=== PATIENT | female | born 1945 | race Caucasian/White ===

== ENCOUNTER → 2019-04-21 08:29 | Outpatient (CLI) | payer MEDICARE, SELFPAY ==
--- NOTE | 2019-04-21 08:30 | XR_ITS ---
XR clavicle LT CLINICAL INDICATION: Follow-up fracture ITS.REASON: Clavicle fracture ORDERING PHYSICIAN: Blake Ernandez MD PATIENT AGE: 73 years Comparison: 03/18/2019 FINDINGS: Previous CT scan demonstrated a fracture of the medial aspect of the clavicle. This area somewhat obscured by overlying ribs. There is a faint curvilinear area of decreased attenuation in this region consistent with a nondisplaced fracture overall not significant change from 03/18/2019. 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 IMPRESSION: No change nondisplaced fracture medial aspect of left clavicle
--- NOTE | 2019-04-21 09:40 | US_ITS ---
US thyroid HISTORY: Left-sided thyroid nodule, thyromegaly ITS.REASON: THYROMEGALY ORDERING PHYSICIAN: Blake Ernandez MD PATIENT AGE: 73 years Comparison: None FINDINGS: The right lobe is 4.3 x 1.8 x 1.6 cm. Nodule a: Slightly hypoechoic nodule upper pole at 7 mm. Nodule B: Hypoechoic nodule mid polar region posteriorly at 5 mm. Nodule C: Partially cystic 1.2 x 0.9 cm nodule with central decreased echogenicity and peripheral isoechoic area. The left lobe is 4.5 x 2 x 1.8 cm. 5 mm slightly hypoechoic nodule mid polar region with an adjacent 4 mm hypoechoic nodule. 1 x 0.9 cm hypoechoic nodule lower pole with an additional 6 mm hypoechoic nodule in the lower pole. The isthmus is slightly thickened at 5 mm containing a 2 mm hypoechoic nodule. IMPRESSION: Mildly enlarged thyroid gland with bilateral nodules probably benign. Recommend 6 month follow-up
== END ==
PROVIDERS: PCP Family Medicine; Visit Provider Family Medicine
DX: S42.009A Fracture of unspecified part of unspecified clavicle, initial encounter for closed fracture (principal); E01.0 Iodine-deficiency related diffuse (endemic) goiter
CPT/HCPCS: 73000; 76536

== ENCOUNTER → 2019-05-19 08:49 | Outpatient (CLI) | payer MEDICARE, SELFPAY ==
--- NOTE | 2019-05-19 08:53 | XR_ITS ---
PROCEDURE: XR CLAVICLE LT CLINICAL INDICATION: clavicle fracture COMPARISON: Shoulder L from 03/18/2019 FINDINGS: The clavicle is grossly intact.. There is minor cortical irregularity of the medial clavicle inferior border which could be a healed nondisplaced incomplete fracture. There is mild degenerate change of the AC joint with spurring superiorly. The humeral head and glenoid appear normal. There are no soft tissue calcifications. IMPRESSION: Mild degenerate change of the AC joint minor cortical irregularity of the inferior medial clavicle with normal variation versus healed incomplete fracture as possibilities. Dictated by: Dr. Mehrdad Heck MD 05/19/2019 09:[address] Mehrdad Heck MD in [place] 05/19/2019 09:20
== END ==
PROVIDERS: PCP Family Medicine; Visit Provider Orthopaedic Surgery
DX: S42.002A Fracture of unspecified part of left clavicle, initial encounter for closed fracture (principal)
CPT/HCPCS: 73000

== ENCOUNTER → 2019-08-09 14:04 | Outpatient (POV) | payer MEDICARE, SELFPAY | DX: Z00.00 Encounter for general adult medical examination without abnormal findings (principal) ==

== ENCOUNTER → 2019-11-02 16:03 | Outpatient (CLI) | payer MEDICARE, SELFPAY ==
--- NOTE | 2019-11-02 16:08 | MM_ITS ---
PROCEDURE: MM DIG SCREENING MAMM BI W/CAD CLINICAL INDICATION: SCREENING There is no personal or family history of breast cancer COMPARISON: None, this is baseline screening TECHNIQUE: Standard CC and MLO images and 3D Tomosynthesis was obtained. R2 CAD reviewed. FINDINGS: Diffuse scattered fibroglandular densities are seen throughout both breasts. There is an asymmetric nodular density outer quadrant right breast at approximately the 3 o'clock position measuring approximately 9 mm in diameter. Audie images confirm this to be a definite mass. Recommend the patient return for ultrasound examination to determine cystic or solid nature of this lesion. There are no suspicious microcalcifications. IMPRESSION: Fibrofatty parenchyma with asymmetric density right breast primarily with benign features but recommend patient return for ultrasound exam BI-RAD Category: 0 Need Additional Imaging Evaluation FOLLOW-UP: IMM Immediate Follow-up Recommended (A letter has been sent to the patient regarding results of the study.) Dictated by: Dr. Mehrdad Heck MD 11/11/2019 19:[address] Mehrdad Heck MD in [place] 11/11/2019 19:38
== END ==
PROVIDERS: PCP Family Medicine; Visit Provider Family Medicine
DX: Z12.31 Encounter for screening mammogram for malignant neoplasm of breast (principal)
CPT/HCPCS: 77063; 77067

== ENCOUNTER → 2019-11-15 13:44 | Outpatient (CLI) | payer MEDICARE, SELFPAY ==
--- NOTE | 2019-11-15 13:48 | US_ITS ---
PROCEDURE: US BREAST RT COMPLETE CLINICAL INDICATION: ABN MAMM COMPARISON: MM DIG SCREENING MAMM BI W/CAD from 11/02/2019 FINDINGS: There is a tiny hypoechoic lesion at the 3 o'clock position in the nipple measuring 0.5 by 0.5 x 0.3 cm. Shows well-defined borders and is too small to definitely characterize but appear to show internal echoes and likely is a fibroadenoma. There is hypoechoic oval lesion at the 10 o'clock position outer breast measuring 0.4 x 0.4 by 0.4 cm with slightly irregular borders and showing faint internal echoes and no acoustic enhancement. This likely is a small fibroadenoma and there is no definite mammogram correlation to this lesion. There is a 3rd oval hypoechoic lesion with well-defined borders 9 o'clock position mid breast measuring 0.7 x 0.3 by 0.6 cm and this is probably a small cyst with internal debris or possibly a small fibroadenoma. There does appear to be mammogram correlation with a small density at this location on the recent mammogram. There is a normal appearing node in the axilla. IMPRESSION: Small benign-appearing lesions in the breast as indicated with only the 10 o'clock lesion with slightly irregular borders not showing a definite mammogram correlation. Recommend the patient return for six-month follow-up right mammogram and ultrasound to evaluate for interval stability. Dictated by: Dr. Mehrdad Heck MD 11/30/2019 14:[address] Mehrdad Heck MD in [place] 11/30/2019 14:05
== END ==
PROVIDERS: PCP Family Medicine; Visit Provider Nurse Practitioner Family
DX: R92.8 Other abnormal and inconclusive findings on diagnostic imaging of breast (principal)
CPT/HCPCS: 76641

== ENCOUNTER → 2021-09-01 13:50 | Outpatient (CLI) | payer MEDICARE, SELFPAY | PROVIDERS: PCP Family Medicine; Visit Provider Family Medicine | DX: U07.1 COVID-19 (principal) | CPT/HCPCS: 87275; 87276; C9803; U0003; U0005 ==

== ENCOUNTER 2021-09-11 15:32 | Emergency (ER) | payer MEDICARE, SELFPAY ==
[2021-09-11 15:40] VITALS: BP 139/68; PULSE 81; RESP 20; TEMP 36.4; O2SAT 98; BMI 33.0
[2021-09-11 16:22] LABS: Basophils % 0.8 % (0.1-2.0); Chloride 100 mmol/L (98-107); Eosinophils # 0.1 K/mm3 (0.0-0.4); Eosinophils % 2.1 % (0.1-12.0); Hematocrit 30.3 % (37.0-47.0); Hemoglobin 9.7 g/dL (12.2-16.2); Lymphocytes # 0.8 K/mm3 (0.7-4.5); Lymphocytes % 16.1 % (10-50); Mean Corpuscular HGB Conc 31.9 g/dL (31.8-35.4); Mean Corpuscular Hemoglobin 27.3 pg (27.0-31.2); Mean Corpuscular Volume 85.7 fl (81-99); Mean Platelet Volume 8.6 fl (7.4-10.4); Monocytes # 0.3 K/mm3 (0.1-1.0); Monocytes % 5.5 % (1.7-9.3); Neutrophils # 3.9 K/mm3 (1.8-7.8); Neutrophils % 75.5 % (37.0-80.0); Platelet Count 281 K/mm3 (142-424); Red Blood Count 3.54 M/mm3 (4.20-5.40); Red Cell Distribution Width 14.9 % (11.5-17.5); White Blood Count 5.1 K/mm3 (4.8-10.8)
[2021-09-11 16:23] LABS: Potassium 3.9 mmoL/L (3.5-5.1); Sodium 138 mmol/L (136-145)
[2021-09-11 16:25] LABS: Alanine Aminotransferase 23 U/L (12-78); Alkaline Phosphatase 83 U/L (38-126); Anion Gap 9.9 mEq/L (5-15); Aspartate Amino Transferase 33 U/L (14-36); Bilirubin,Total 0.3 mg/dl (0.2-1.3); Blood Urea Nitrogen 36 mg/dl (7-17); Carbon Dioxide 32 mmol/L (22.0-30.0); Creatinine Clearance Estimated 69 mL/min (50-200); Estimated Glomerular Filt Rate 61 ml/min (>60); GFR (African American) 73 ML/MIN (>60)
[2021-09-11 16:26] LABS: Albumin Level 3.3 g/dl (3.5-5.0); Calcium 9.3 mg/dl (8.4-10.2); Globulin 3.2 g/dL (1.3-3.2); Glucose 103 mg/dl (74-100); Total Protein,Serum 6.5 g/dl (6.3-8.2)
--- NOTE | 2021-09-11 16:40 | [facility].EDWEAK ---
ED Disposition Clinical Impression: COVID-19, Anemia Disposition: Home, Self-Care Condition on Discharge: Good Instructions: Anemia, Coronavirus Disease 2019 Additional Instructions: Please follow up with your primary care physician in 2-3 days for further management for repeat labs, blood count in particular. Please use zofran as prescribed. Please continue to drink plenty of water and eat 3 balanced meals. Please return to the ED for any concerning symptoms. Prescriptions: ondansetron HCL [Zofran 4mg Tab*] 4 mg PO BIDP PRN #20 tab PRN Reason: Vomiting Transmission Status: Received by [facility] Referrals: Blake Ernandez MD [Primary Care Provider] - Time of Disposition: 17:55 - Critical Care Critical Care Time: No Attestation: On 09/11/21, the high probability of a clinically significant, sudden or life threatening deterioration of the following system(s) required my full and direct attention, intervention and personal management. The time I documented below is in addition to time spent performing reported procedures but includes the following listed in this critical care notation. Medical Decision Making - Medical Records Medical records reviewed: Yes: I reviewed the patient's medical records. - Gideon Inquiry Pt receiving controlled substance: No Vital Signs: 09/11/21 15:40 09/11/21 17:04 Temperature 97.5 F L 98.0 F Temperature Source Oral Oral Pulse Rate 88 Pulse Rate [Right Brachial] 81 Respiratory Rate 20 16 Blood Pressure 142/78 H Blood Pressure [Right Arm] 139/68 Blood Pressure Mean [Right Arm] 91 Blood Pressure Source Automatic Cuff Blood Pressure Source [Right Arm] Automatic Cuff Blood Pressure Position Sitting Blood Pressure Position [Right Arm] Sitting 02 Sat by Pulse Oximetry 98 Oxygen Delivery Method Nasal Cannula Room Air Oxygen Flow Rate (LPM) 2 - Lab Data Lab results reviewed: Yes: I reviewed the patient's lab results. Lab Results 09/11/21 15:20: WBC 5.1, RBC 3.54 L, Hgb 9.7 L, Hct 30.3 L, MCV 85.7, MCH 27.3, MCHC 31.9, RDW 14.9, Plt Count 281, MPV 8.6, Neut % (Auto) 75.5, Lymph % (Auto) 16.1, [place] % (Auto) 5.5, Eos % (Auto) 2.1, Baso % (Auto) 0.8, Neut # (Auto) 3.9, Lymph # (Auto) 0.8, [place] # (Auto) 0.3, Eos # (Auto) 0.1, Baso # (Auto) 0.0 09/11/21 15:20: Sodium 138, Potassium 3.9, Chloride 100, Carbon Dioxide 32 H, Anion Gap 9.9, BUN 36 H, Creatinine 0.90, Estimated Creat Clear 69, Estimated GFR 61, Est GFR ( Amer) 73, Glucose 103 H, Calcium 9.3, Total Bilirubin 0.3, AST 33, ALT 23, Alkaline Phosphatase 83, Total Protein 6.5, Albumin 3.3 L, Globulin 3.2, Albumin/Globulin Ratio 1.0 L Result diagrams: 09/11/21 15:20 09/11/21 15:20 Orders (Tests/Meds): ED MEDICATIONS Discontinued Medications Generic Name Dose Route Start Last Admin Trade Name Freq PRN Reason Stop Dose Admin Sodium Chloride 1,000 mls @ 999 mls/hr 09/11/21 16:00 09/11/21 15:57 Sod Chlor 0.9% 1000ml Bag IV 09/11/21 17:00 999 mls/hr .Q1H1M PEDRO Administration Ondansetron HCl 4 mg 09/11/21 15:54 09/11/21 15:56 Ondansetron 4mg Odt SL 09/11/21 15:55 4 mg ONCE ONE Administration Medical Decision Narrative: Mrs. Quezada is a 75-year-old female who presents to the emergency department with generalized weakness in the setting of COVID-19 infection. Patient also reports associated nausea. Patient is afebrile and hemodynamically stable on arrival. Differentials to consider but not limited to include; superimposed pneumonia, metabolic/electrolyte derangement, COVID-19 infection, other infection. CBC, CMP are obtained for further evaluation results show no significant electrolyte abnormality however patient does have a mild anemia 9.6. Discussed results with patient patient denies history of bleeding or anemia. Patient is given a liter IV lactated Ringer's for fluid resuscitation along with Zofran for symptomatic relief. Patient is discharged with Z
[2021-09-11 17:04] VITALS: BP 142/78; PULSE 88; RESP 16; TEMP 36.7; O2SAT 98
== END 2021-09-11 17:07 | disposition home or self-care (01) ==
PROVIDERS: Emergency Provider Student in an Organized Health Care Education/Training Program; PCP Family Medicine
DX: U07.1 COVID-19 (principal); D64.9 Anemia, unspecified
CPT/HCPCS: 80053; 85025; 99282

== ENCOUNTER → 2022-11-03 23:40 | Outpatient (CLI) | payer MEDICARE, SELFPAY ==
[2022-11-03 19:26] LABS: Alanine Aminotransferase 14 U/L (12-78); Albumin Level 3.8 g/dl (3.5-5.0); Albumin/Globulin Ratio 1.3 (1.1-1.8); Alkaline Phosphatase 85 U/L (38-126); Anion Gap 7.5 mEq/L (5-15); Aspartate Amino Transferase 22 U/L (14-36); Bilirubin,Total 0.5 mg/dl (0.2-1.3); Blood Urea Nitrogen 22 mg/dl (7-17); Calcium 8.9 mg/dl (8.4-10.2); Carbon Dioxide 30 mmol/L (22.0-30.0); Chloride 99 mmol/L (98-107); Estimated Glomerular Filt Rate 48 ml/min (>60); GFR (African American) 58 ML/MIN (>60); Globulin 2.9 g/dL (1.3-3.2); Glucose 162 mg/dl (74-100); Potassium 4.5 mmoL/L (3.5-5.1); Sodium 132 mmol/L (136-145); Total Protein,Serum 6.7 g/dl (6.3-8.2)
[2022-11-03 19:55] LABS: Thyroid Stimulating Hormone 0.94 uIU/mL (0.465-4.68)
== END ==
PROVIDERS: PCP Family Medicine; Visit Provider Family Medicine
DX: I10 Essential (primary) hypertension (principal); E11.9 Type 2 diabetes mellitus without complications; Z79.84 Long term (current) use of oral hypoglycemic drugs; Z79.899 Other long term (current) drug therapy
CPT/HCPCS: 80053; 84443

== ENCOUNTER → 2022-11-06 09:15 | Outpatient (CLI) | payer MEDICARE, SELFPAY | PROVIDERS: PCP Family Medicine; Visit Provider Family Medicine | DX: D22.9 Melanocytic nevi, unspecified (principal) ==

== ENCOUNTER → 2022-12-11 23:58 | Outpatient (CLI) | payer MEDICARE, SELFPAY ==
[2022-12-11 19:04] LABS: Basophils % 0.6 % (0.1-2.0); Eosinophils # 0.1 K/mm3 (0.0-0.4); Eosinophils % 1.9 % (0.1-12.0); Hematocrit 30.9 % (37.0-47.0); Hemoglobin 9.9 g/dL (12.2-16.2); Lymphocytes # 1.6 K/mm3 (0.7-4.5); Lymphocytes % 21.4 % (10-50); Mean Corpuscular HGB Conc 32.1 g/dL (31.8-35.4); Mean Corpuscular Hemoglobin 27.5 pg (27.0-31.2); Mean Corpuscular Volume 85.5 fl (81-99); Mean Platelet Volume 9.7 fl (7.4-10.4); Monocytes # 0.4 K/mm3 (0.1-1.0); Neutrophils # 5.5 K/mm3 (1.8-7.8); Neutrophils % 71.2 % (37.0-80.0); Platelet Count 263 K/mm3 (142-424); Red Blood Count 3.62 M/mm3 (4.20-5.40); Red Cell Distribution Width 15.1 % (11.5-17.5); White Blood Count 7.7 K/mm3 (4.8-10.8)
[2022-12-11 20:08] LABS: Vitamin B12 < 159 pg/mL (239-931)
[2022-12-11 21:20] LABS: Iron 51 ug/dL (37-170)
[2022-12-11 21:29] LABS: Total Iron Binding Capacity 309 ug/dL (265-497)
== END ==
PROVIDERS: PCP Family Medicine; Visit Provider Family Medicine
DX: S30.0XXA Contusion of lower back and pelvis, initial encounter (principal); D64.9 Anemia, unspecified
CPT/HCPCS: 82607; 83540; 83550; 85025

== ENCOUNTER → 2023-03-12 08:36 | Outpatient (CLI) | payer MEDICARE, SELFPAY ==
[2023-03-12 19:03] LABS: Basophils % 0.4 % (0.1-2.0); Eosinophils # 0.2 K/mm3 (0.0-0.4); Eosinophils % 3.2 % (0.1-12.0); Hematocrit 32.3 % (37.0-47.0); Hemoglobin 10.1 g/dL (12.2-16.2); Lymphocytes # 1.4 K/mm3 (0.7-4.5); Lymphocytes % 20.7 % (10-50); Mean Corpuscular HGB Conc 31.2 g/dL (31.8-35.4); Mean Corpuscular Hemoglobin 26.5 pg (27.0-31.2); Mean Corpuscular Volume 84.9 fl (81-99); Mean Platelet Volume 10.6 fl (7.4-10.4); Monocytes # 0.4 K/mm3 (0.1-1.0); Monocytes % 6.1 % (1.7-9.3); Neutrophils # 4.7 K/mm3 (1.8-7.8); Neutrophils % 69.7 % (37.0-80.0); Platelet Count 257 K/mm3 (142-424); Red Cell Distribution Width 15.2 % (11.5-17.5); White Blood Count 6.7 K/mm3 (4.8-10.8)
== END ==
PROVIDERS: Visit Provider Family Medicine
DX: S30.0XXA Contusion of lower back and pelvis, initial encounter (principal)
CPT/HCPCS: 85025

== ENCOUNTER → 2023-03-24 07:59 | Outpatient (CLI) | payer MEDICARE, SELFPAY ==
--- NOTE | 2023-03-24 08:07 | US_ITS ---
FINAL REPORT CLINICAL HISTORY: dyspepsia FINDINGS: Sonographic images of the right upper quadrant were obtained. The pancreas is partially obscured.. There is mild fatty liver present. There is an echogenic focus in the dependent portion of the gallbladder without well defined shadowing, may represent tumefactive sludge versus a gallstone with poorly demonstrated shadowing. The gallbladder wall is normal. There is no evidence of biliary ductal dilatation.The common duct measures 2 mm. The right kidney measures 9.2 cm and is unremarkable. IMPRESSION: Echogenic focus in the dependent portion of the gallbladder without well defined shadowing, may represent tumefactive sludge versus a gallstone with poorly demonstrated shadowing. Reviewed, Interpreted and Dictated by Tito Jackson III, MD Transcribed by Fred Dos Santos Authenticated and [facility]
--- NOTE | 2023-03-24 08:07 | XR_ITS ---
FINAL REPORT CLINICAL HISTORY: dyspepsia, gas after eating FINDINGS: ABDOMEN SINGLE VIEW There is nonobstructive bowel gas pattern. There is a large amount of stool throughout the colon. No bowel dilation is identified. No abnormal calcification is seen. There are moderate degenerative changes of the lumbar spine. IMPRESSION Large amount of stool burden is present. Reviewed, Interpreted and Dictated by Tito Jackson III, MD Transcribed by Fred Dos Santos Authenticated and [facility]
== END ==
PROVIDERS: PCP Family Medicine; Visit Provider Family Medicine
DX: K31.9 Disease of stomach and duodenum, unspecified (principal); R10.13 Epigastric pain
CPT/HCPCS: 74018; 76705

== ENCOUNTER → 2023-06-15 23:36 | Outpatient (CLI) | payer MEDICARE, SELFPAY ==
[2023-06-15 18:45] LABS: MANUAL DIFFERENTIAL MANUAL DIFFERENTIAL (MANUAL DIFF)
[2023-06-15 18:57] LABS: Basophils % 0.3 % (0.1-2.0); Eosinophils # 0.2 K/mm3 (0.0-0.4); Eosinophils % 2.5 % (0.1-12.0); Hematocrit 32.5 % (37.0-47.0); Hemoglobin 10.1 g/dL (12.2-16.2); Lymphocytes # 1.2 K/mm3 (0.7-4.5); Lymphocytes % 17.1 % (10-50); Mean Corpuscular HGB Conc 31.2 g/dL (31.8-35.4); Mean Corpuscular Volume 86.5 fl (81-99); Mean Platelet Volume 10.2 fl (7.4-10.4); Monocytes # 0.4 K/mm3 (0.1-1.0); Monocytes % 5.3 % (1.7-9.3); Neutrophils # 5.4 K/mm3 (1.8-7.8); Neutrophils % 74.7 % (37.0-80.0); Platelet Count 226 K/mm3 (142-424); Red Blood Count 3.76 M/mm3 (4.20-5.40); Red Cell Distribution Width 15.2 % (11.5-17.5); White Blood Count 7.2 K/mm3 (4.8-10.8)
[2023-06-15 19:12] LABS: Alanine Aminotransferase 16 U/L (12-78); Albumin Level 3.7 g/dl (3.5-5.0); Albumin/Globulin Ratio 1.2 (1.1-1.8); Alkaline Phosphatase 88 U/L (38-126); Anion Gap 13.2 mEq/L (5-15); Aspartate Amino Transferase 23 U/L (14-36); Bilirubin,Total 0.4 mg/dl (0.2-1.3); Blood Urea Nitrogen 22 mg/dl (7-17); Calcium 8.9 mg/dl (8.4-10.2); Carbon Dioxide 29 mmol/L (22.0-30.0); Chloride 97 mmol/L (98-107); Estimated Glomerular Filt Rate 36 ml/min (>60); GFR (African American) 44 ML/MIN (>60); Globulin 3.1 g/dL (1.3-3.2); Glucose 129 mg/dl (74-100); Potassium 4.2 mmoL/L (3.5-5.1); Sodium 135 mmol/L (136-145); Total Protein,Serum 6.8 g/dl (6.3-8.2)
[2023-06-15 20:07] LABS: Eosinophils % 1 % (0-3); Lymphocytes % 14 % (10-50); Monocytes % 3 % (2-9); Neutrophils % 82 % (42-76); Platelet Estimate Normal; RBC Morphology Normal; Total Cells Counted 100
== END ==
PROVIDERS: PCP Family Medicine; Visit Provider Family Medicine
DX: K31.9 Disease of stomach and duodenum, unspecified (principal); R10.13 Epigastric pain; I10 Essential (primary) hypertension
CPT/HCPCS: 80053; 85007; 85014; 85018; 85048; 85049